=== PATIENT | female | born 1995 | race Caucasian/White ===

== ENCOUNTER 2017-08-26 21:23 | Emergency (ER) | payer OTHER ==
[~2017-08-26] VITALS: Ht 170.2 cm; Wt 77.1 kg
[2017-08-26] MEDS ORDERED: NOHOMEMEDICATIONS (21:39)
[2017-08-26] MEDS ORDERED: NEXPLANON68 MG SUBQ (22:31)
[2017-08-26 23:10] VITALS: BP 128/85
== END 2017-08-26 23:10 | disposition home or self-care (01) ==
LOC: M.ERS 21:23
DX: Z88.1 Allergy status to other antibiotic agents (principal); R51 Headache